=== PATIENT | female | born 1940 | race Caucasian/White ===

== ENCOUNTER → 2016-08-04 | Outpatient (CLI) | payer MEDICARE ==
[~2016-08-04] MED LIST: ADVIL100 M1; FLEXERIL PO; MOBIC PO; NORVASC10 MG PO; PREVACID15 M1; TYLENOL #3 PO
--- NOTE | ~2016-08-04 | MR17 ---
[facility] A Service of [facility] & [facility] RADIOLOGY TEXT RESULTS PATIENT: AZUL ECHEVERRIA LOCATION: [facility] : 41 UNIT #: [id number] AGE: [address]: Bettina Taveras MD SEX: F ORDER DR: [id number] [place] [id number] O MR#: [id number] Acc #: [id number] NAME: AZUL ECHEVERRIA : 1940 SEX: F STUDY DATE/TIME: 08/04/2016 13:23 UNIT: [facility] ROOM: STUDY DESCRIPTION: MR Brain WWo Contrast Attending Physician: Bettina Taveras M.D. Referring Physician: Bettina Taveras M.D. Ordering Physician: Bettina Taveras M.D. Primary Care Physician: Bettina Taveras M.D. MRI CENTER REPORT This report is preliminary unless electronic signature is present. EXAM MRI of the brain with and without HISTORY 75-year-old female with headache, chronic history. Now has increasing right-sided headaches for 3-4 months with right-sided facial tingling. No known injury. No history of cancer. TECHNIQUE MRI of the brain was performed prior to and following intravenous administration of 15 mL of MultiHance. COMPARISON There is a head CT comparison from 05/06/2015. FINDINGS There is no evidence for a recent ischemic insult on the diffusion series. Partly seen on sagittal imaging is degenerative disease of the cervical spine. There is no Chiari-I malformation. There is moderate lacunar disease in the bilateral basal ganglia and thalami. Also djye-ea-wzeuswmo white matter disease, most confluent in the periventricular white matter, likely due to small vessel disease. Small vessel disease in the pedro, as well. There is no extraaxial fluid collection or intracranial mass effect. Generalized prominence of perivascular spaces noted in addition to the chronic lacunar disease. The major intracranial flow voids are maintained. The paranasal sinuses are clear. The mastoid air cells are clear. Following contrast administration, there is a small focus of enhancement of the right parietal cortex, about 5 mm in dimension, without mass effect. This is very nonspecific. The main consideration would be a tiny STS. [facility] A Service of [facility] RADIOLOGY TEXT RESULTS PATIENT: AZUL ECHEVERRIA LOCATION: [facility] : 41 UNIT #: [id number] AGE: [address]: Bettina Taveras MD SEX: F ORDER DR: now subacute thromboembolic insult, but other considerations would include metastatic disease or infectious or inflammatory disease, and please correlate further clinically for risk factors for thromboembolic disease. Please correlate for any malignancy history. I would recommend correlation with a followup MRI in about 6 weeks to assess evolution. Favored diagnosis at this time is subacute small focus of ischemia. No additional areas of pathologic intracranial enhancement are appreciated. IMPRESSION 1. There is a small 5-mm focus of enhancement in the right parietal cortex without associated mass effect or restricted diffusion. It is a nonspecific finding. At this time, I would favor that it is a subacute area of ischemia, due to a small thromboembolic insult, but differential considerations would include neoplastic disease, infectious or inflammatory disease, and for this reason I would recommend further clinical correlation and follow up imaging of the brain with an MRI with and without contrast in about 6 weeks. See discussion above. 2. Otherwise, there is probable sequelae of small vessel disease with most severe involvement in the bilateral basal ganglia and thalami. Please correlate for risk factors for small vessel disease. No intracranial mass effect. No recent intracranial hemorrhage. No extraaxial fluid collection. STAT * RESULT Dictated by... Emilia Tomlinson M.D. THIS IS AN ELECTRONICALLY VERIFIED REPORT Emilia Tomlinson M.D. at 08/04/2016 4:51 PM Nathanael TD: 08/04/2016 16:26 JOB #: [id number] MRI CENTER REPORT Page 1 of 1
[2016-08-04 14:35] LABS: POC - CREATININE 0.85 mg/dL (0.44-1.03); POC - GFR >60.0 mL/min (>60)
== END | disposition home or self-care (01) ==
LOC: SMRI 13:02
PROVIDERS: Internal Medicine
DX: R51 Headache (principal); R20.2 Paresthesia of skin; G93.89 Other specified disorders of brain
CPT/HCPCS: 70553; 82565; A9581

== ENCOUNTER → 2016-08-09 | Outpatient (CLI) | payer MEDICARE ==
--- NOTE | ~2016-08-09 | HM ---
Unit #: [id number] #: [id number] Patient: AZUL ECHEVERRIA [id number] [address] [place], [place] [address] [id number] O MR#: [id number] NAME: AZUL ECHEVERRIA : 1940 SEX: F STUDY DATE/TIME: 08/09/2016 UNIT: [facility] ROOM: STUDY DESCRIPTION: Attending Physician: Bettina Taveras M.D. Referring Physician: Bettina Taveras M.D. Primary Care Physician: Bettina Taveras M.D. CARDIOLOGY REPORT EXAM Holter monitor. DATE APPLIED 08/09/2016 DATE SCANNED 08/15/[address] Any Taveras READ BY Dr. John Rubi INDICATION Evaluate for atrial fibrillation with CVA. SUMMARY The patient was monitored for 23 hours 56 minutes. Average heart rate was 77 beats per minute. The rhythm was sinus. Minimum heart rate was 57 beats per minute at approximately 3 a.m. and maximum heart rate 120 beats per minute at approximately 10 a.m. The longest R-R interval was 1.5 seconds when a non-conducted APC occurred. A total of 110,539 QRS complexes were analyzed. SUPRAVENTRICULAR ECTOPY: There were 341 isolated beats with one 3-beat run. This occurred at 135 beats per minute at approximately 5:30 p.m. This was spontaneous in onset and offset. In reviewing the "run," this appears to be actually a PAC pair. VENTRICULAR ECTOPY: There were 222 isolated beats with no runs. SYMPTOMS: None. PATIENT ACTIVATED EVENTS: None. IMPRESSION 1. Normal Holter monitor with rare supraventricular and ventricular ectopy. 2. No pauses. Unit #: [id number] #: [id number] Patient: AZUL ECHEVERRIA 3. No atrial fibrillation to account for embolic stroke. 1. Dictated by... Yolanda Asher/gilberto TD: 08/18/2016 20:41 JOB #: [id number] CARDIOLOGY REPORT Page 1 of 1 X John Rubi MD HOLTER MONITOR REPORT
== END | disposition home or self-care (01) ==
LOC: CECH 09:29
DX: I63.9 Cerebral infarction, unspecified (principal)
CPT/HCPCS: 93225; 93226

== ENCOUNTER → 2016-09-10 | Outpatient (CLI) | payer MEDICARE ==
--- NOTE | ~2016-09-10 | US37 ---
[facility] A Service of [facility] & [facility] RADIOLOGY TEXT RESULTS PATIENT: AZUL ECHEVERRIA LOCATION: [facility] : 42 UNIT #: [id number] AGE: [address]: Bettina Taveras MD SEX: F ORDER DR: [id number] [facility] [address] [facility]. [place], [place] [address] [id number] O MR#: [id number] Acc #: [id number] NAME: AZUL ECHEVERRIA : 1940 SEX: F STUDY DATE/TIME: 09/10/2016 8:52 UNIT: [facility] ROOM: STUDY DESCRIPTION: US Carotid W/Doppler Bilateral Attending Physician: Bettina Taveras M.D. Referring Physician: Bettina Taveras M.D. Ordering Physician: Bettina Taveras M.D. Primary Care Physician: Bettina Taveras M.D. MEDICAL IMAGING REPORT This report is preliminary unless electronic signature is present DATE OF EXAM 09/10/2016 REASON FOR EXAM Stroke. EXAM Bilateral carotid Doppler. FINDINGS The right common internal and external carotid arteries are patent without plaque or intimal thickening. The velocity of the common carotid artery is 100 cm/sec. Peak systolic velocity of right proximal internal carotid artery is 61 cm/sec with an end-diastolic velocity of 15 cm/sec with an ICA:CCA ratio of 0.6. External carotid artery velocity of 70 cm/sec. The vertebral artery is visualized with antegrade flow. The left common internal and external carotid arteries are patent without plaque or intimal thickening. The velocity of the common carotid artery is 75 cm/sec. Peak systolic velocity of the left proximal internal carotid artery is 62 cm/sec with an end-diastolic velocity of 18 cm/sec for an ICA:CCA ratio of 0.83. External carotid artery velocity of 85 cm/sec. The vertebral artery is visualized with antegrade flow. IMPRESSION 1. Normal appearance without stenosis of the right and left internal carotid arteries. 2. No stenosis of the external carotid arteries. 3. Antegrade flow of the vertebral arteries. STS. [facility] A Service of [facility] & [facility] RADIOLOGY TEXT RESULTS PATIENT: AZUL ECHEVERRIA LOCATION: [facility] #: [id number] : 42 UNIT #: [id number] AGE: [address]: Bettina Taveras MD SEX: F ORDER DR: Dictated by... Hernando Carlson M.D. THIS IS AN ELECTRONICALLY VERIFIED REPORT Hernando Carlson M.D. at 09/13/2016 11:04 AM Re TD: 09/10/2016 16:27 JOB #: [id number] MEDICAL IMAGING REPORT Page 1 of 1 COPY
== END | disposition home or self-care (01) ==
LOC: CNIV 09-01 09:00
DX: I63.9 Cerebral infarction, unspecified (principal); R20.2 Paresthesia of skin
CPT/HCPCS: 93880